=== PATIENT | female | born 1990 | race American Indian/Alaskan Native ===

== ENCOUNTER 2018-09-23 13:16 | Outpatient (CLI) | payer OTHER | END 2018-09-23 14:27 | disposition home or self-care (01) | LOC: EEVIPCON 13:16 → TRG 13:16 → LD 13:17 → TRG 14:27 | PROVIDERS: ATTEND Obstetrics & Gynecology | DX: O47.02 False labor before 37 completed weeks of gestation, second trimester (principal); O24.419 Gestational diabetes mellitus in pregnancy, unspecified control; Z3A.25 25 weeks gestation of pregnancy | CPT/HCPCS: 59025 ==